=== PATIENT | female | born 1945 | race Caucasian/White ===

== ENCOUNTER → 2016-08-10 | Outpatient (CLI) | payer OTHER ==
[2015-08-10 14:46] VITALS: BP 133/82; PULSE 71
[~2016-08-10] MED LIST: CALC-220 PO; CETI10TA10 PO; CHOL1CAP57 PO; FMR25 PO; FSM70 PO; HYDR25TA5 PO; LSN40 PO; MELA1TAB54 PO; MISCTAB88 PO; MOME50SP5; MULT-614 PO; OMEP20CA9 PO; ZLF/100 PO
[2016-08-10 13:00] VITALS: BP 138/75; PULSE 88; TEMP 37; O2SAT 94
--- NOTE | 2016-08-10 14:37 | Radiation Oncology Follow-Up ---
Radiation Oncology Follow-Up Date of Visit Aug 10, 2016. Reason For Visit Annual follow-up Radiation Completion Date 11/25/12 Diagnosis (1) Breast cancer Status: Resolved Onset Date: 07/27/2011 Histology Subtype: ductal Stage: l (A) Permanent Comment: Abnormal right breast mammogram Status post biopsy revealing infiltrating ductal carcinoma status post partial mastectomy and sentinel lymph node biopsy estrogen receptor positive, progesterone receptor positive, HER-2/lorena negative stage pT1c pN0M0 Oncotype DX score of 13 Status post completion of radiation therapy 11/25/2012 received 6120 cGy Last Edited By: Claritza Butler on Aug 10, 2015 16:04 Interim History Over this past year she has been doing well. She does occasionally have a feeling of fullness in the breast. She will note redness that will last for a few hours then quickly resolved. She has noted no masses and no change of the axilla. She is up-to-date on mammography. She is on Femara and denies side effects. She currently is being treated for urinary tract infection. She is on antibiotic. She is followed closely for pulmonary lung nodules. Dr. Ferrer has followed her with serial CT scans. Allergies Coded Allergies: No Known Allergies (Unverified , 08/25/15) Home Medications Scheduled Alendronate Sodium (Alendronate Sodium), 70 MG PO WK Calcium Carbonate-Vitamin D (Caltrate 600+D), 1 TAB PO BID Cholecalciferol (Vitamin D3), 1,000 INTER.UNIT PO 2XWK Hydrochlorothiazide (Hydrochlorothiazide), 25 MG PO DAILY Letrozole (Femara), 2.5 MG PO DAILY Lisinopril (Lisinopril), 40 MG PO DAILY Melatonin (Melatonin), 5 MG PO HS Misc Natural Products (Osteo Bi-Flex Triple Stre), 1 TAB PO BID Mometasone Furoate (Nasonex), 1 SPRAY NA DAILY Multiple Vitamins W/ Minerals (Centrum Silver Ultra [place]ome), 1 TAB PO DAILY Omeprazole (Prilosec), 20 MG PO DAILY Sertraline HCl (Sertraline HCl), 150 MG PO DAILY Scheduled PRN Cetirizine Hcl (Zyrtec), 10 MG PO DAILY PRN for Allergies Review of Systems Gastrointestinal: Symptoms: WNL GI Comments: occ constipation Last BM today Oral: Symptoms: No Problems Other Oral Symptoms: feels like lump in throat pt thinks result of mucous started on nasonex Respiratory: Symptoms: WNL Urinary: Symptoms: WNL Comments: Currently have UTI and on antibiotic Skin: Symptoms: No Problems Other Skin Symptoms: noted x2 right breast was red no prob at present Breast: Right Upper Arm Measurement: 33.0 Right Mid Arm Measurement: 26.4 Right Wrist Measurement: 15.6 Left Upper Arm Measurement: 34.1 Left Mid Arm Measurement: 26.3 Left Wrist Measurement: 15.8 Arm Dominence: Right Patient Cosmetic Evaluation: Fair Staff Cosmetic Evalaluation: Good Physical Exam Vital Signs Date Time Temp Pulse Resp B/P Pulse Ox O2 Delivery O2 Flow Rate FiO2 08/10/16 13:00 37.0 88 16 138/75 94 Fatigue: None General Appearance: no apparent distress Eyes: normal inspection, EOMI ENT: normal ENT inspection, hearing grossly normal Neck: no adenopathy, thyroid normal Respiratory/Chest: lungs clear, no respiratory distress, no accessory muscle use Breast: Breast examination reveals well-healed incisions of the right breast. She has some mild edema in the lower quadrants. There are no masses or tenderness no axillary adenopathy. There is no erythema. Using the [place] score cosmesis she has a good outcome. The left breast showed no masses or tenderness and no axillary adenopathy. Cardiovascular: regular rate, rhythm, no gallop, no murmur Abdomen: non tender, soft Extremities: no pedal edema Neurologic/Psychiatric: no motor/sensory deficits, alert, normal mood/affect Skin: warm/dry Lymphatic: no adenopathy Laboratory Studies Test 05/29/16 13:53 White Blood Count 6.38 K/uL (4.8-10.8) Red Blood Count 3.89 M/uL (4.2-5.4) Hemoglobin 11.1 g/dL (12.0-16.0) Hematocrit 33.5 % (37-47) Mean Corpuscular Volume 86.1 fL (80-100) Mean Corpuscular Hemoglobin 28.5 pg (25-34) Mean Corpuscular Hemoglobin Concent 33.1 g/dl (32-36) Platelet Count 156 K/uL (130-400) Mean Platelet Volume 10.2 fL (7.4-10.4) Neutrophils (%) (Auto) 71.9 % Lymphocytes (%) (Auto) 19.3 % Monocytes (%) (Auto) 7.2 % Eosinophils (%) (Auto) 0.9 % Basophils (%) (Auto) 0.5 % Neutrophils # (Auto) 4.59 K/uL (1.4-6.5) Lymphocytes # (Auto) 1.23 K/uL (1.2-3.4) Monocytes # (Auto) 0.46 K/uL (0.11-0.59) Eosinophils # (Auto) 0.06 K/uL (0-0.5) Basophils # (Auto) 0.03 K/uL (0-0.2) RDW Standard Deviation 42.8 fL (36.4-46.3) RDW Coefficient of Variation 13.5 % (11.5-14.5) Immature Granulocyte % (Auto) 0.2 % Immature Granulocyte # (Auto) 0.01 K/uL (0.00-0.02) Sodium Level 144 mmol/L (136-145) Potassium Level 3.4 mmol/L (3.5-5.1) Chloride Level 108 mmol/L (98-107) Carbon Dioxide Level 25 mmol/L (21-32) Anion Gap 11.0 mmol/L (3-11) Blood Urea Nitrogen 20 mg/dl (7-18) Creatinine 0.74 mg/dl (0.60-1.20) Estimated GFR () 95.1 Estimated GFR (Non- 82.1 BUN/Creatinine Ratio 26.6 (10-20) Random Glucose 98 mg/dl (70-99) Calcium Level 9.6 mg/dl (8.5-10.1) Total Bilirubin 0.9 mg/dl (0.2-1) Aspartate Amino Transferase (AST) 18 U/L (15-37) Alanine Aminotransferase (ALT) 9 U/L (12-78) Alkaline Phosphatase 83 U/L (45-117) Lactate Dehydrogenase 153 U/L (84-246) Total Protein 6.8 gm/dl (6.4-8.2) Albumin 3.6 gm/dl (3.4-5.0) Globulin 3.2 gm/dl (2.5-4.0) Albumin/Globulin Ratio 1.1 (0.9-2) CA 15-3 Antigen 35 U/mL (<32) CA 27.29 46 U/ML (<38) Additional Studies She had a mammogram in [place] 09/14/2015. There is no mammographic evidence of malignancy. One year follow-up was recommended. BI-RADS Category 2. She also had a follow-up CT scan of the chest 04/10/2016. This revealed the right upper lobe nodule and left lower lobe nodule to be stable. She had a mammogram 05/09/2016. This was a right breast mammogram. This showed stable expected postlumpectomy and radiation changes in the right breast are benign. BI-RADS Category 2. Assessment & Plan Plan: Continue regular follow-up with medical oncology and her primary care physician. Continue follow-up at [place] with the breast surgeon. She continues on Femara. Continue on current schedule of mammography. She'll continue the recheck of the pulmonary nodules through Dr. Ferrer's office. We asked her to return to our office in 1 year. She may call she has any questions or concerns. Total Time In Follow-Up I spent 20 minutes speaking to the patient and performing examination. I spent 15 minutes reviewing information and completing this note. Copy To Arron Ferrer D.O.; Renata Mae M.D.; Lowell Cordero M.D. Problem Qualifiers (1) Breast cancer: Patient sex: female Laterality: right
== END | disposition home or self-care (01) ==
LOC: C.ONC 12:55
PROVIDERS: ATTEND Radiology Radiation Oncology
DX: Z08 Encounter for follow-up examination after completed treatment for malignant neoplasm (principal); Z92.3 Personal history of irradiation; Z85.3 Personal history of malignant neoplasm of breast

== ENCOUNTER → 2016-08-14 | Outpatient (CLI) | payer OTHER ==
--- NOTE | 2016-08-14 13:03 | DIAGNOSTIC IMAGING REPORT ---
CT OF THE CHEST WITHOUT IV CONTRAST CLINICAL HISTORY: Pulmonary nodule. COMPARISON STUDY: Chest CT May 15, 2016 and October 08, 2015. CT DOSE: 441.70 mGy.cm TECHNIQUE: Axial images of the chest were obtained without IV contrast. Images were reviewed in the axial, sagittal, and coronal planes. IV contrast was not administered for this examination. FINDINGS: No enlarged axillary, mediastinal or hilar lymph nodes are present. The size of the heart is within normal limits. There is no pericardial effusion. Asymmetric right breast skin thickening is unchanged. Postsurgical findings within the right breast and right axillary are again noted. Central airways are patent. There is no consolidation. Linear and ground glass opacities are suggestive atelectasis or scarring. A 6 mm right upper lobe nodule shown on image [address] of October 08, 2015. A 4 mm left lower lobe nodule shown on image 155 is also unchanged. Numerous additional smaller nodules are unchanged. No new nodules are present. No suspicious osseous lesions are present. Gallstones are noted within the gallbladder. IMPRESSION: 1. No change in multiple pulmonary nodules since CT of October 08, 2015. These nodules are likely benign but a follow-up chest CT in 6 months to ensure stability is recommended. 2. No thoracic lymphadenopathy. 3. Stable asymmetric right breast skin thickening which is likely post therapeutic. Electronically signed by: Casey Murray M.D. 08/14/2016 1:02 PM Dictated Date/Time: 08/14/2016 11:45 AM
== END | disposition home or self-care (01) ==
LOC: C.CTS 11:07
PROVIDERS: ATTEND Family Medicine
DX: R91.1 Solitary pulmonary nodule (principal)

== ENCOUNTER → 2016-11-09 | Outpatient (CLI) | payer OTHER ==
[~2016-11-09] MED LIST changes: +OPTIRAY 320 IV PRN
--- NOTE | 2016-11-09 11:40 | DIAGNOSTIC IMAGING REPORT ---
CT OF THE CHEST WITH IV CONTRAST CLINICAL HISTORY: Breast cancer. COMPARISON STUDY: Chest CT August 14, 2016. TECHNIQUE: Following IV administration of 94 mL of Optiray-320, helical axial images of the chest were obtained. Images were viewed in the axial, sagittal and coronal planes. IV contrast was administered without complication. CT DOSE: 359.63 mGy.cm FINDINGS: No enlarged axillary, mediastinal or hilar lymph nodes are present. The size of the heart is at the upper limits of normal. There is no pericardial effusion. Central airways are patent. There is no consolidation to suggest pneumonia. Numerous small pulmonary nodules are unchanged since CT of October 08, 2015. These are stable since treatment planning CT of September 27, 2012. The largest is a 6 mm right upper lobe nodule shown on image 73 of 271. There are no new nodules. Bony thorax is unremarkable. Visualized portions of the upper abdomen demonstrate stable hypodense hepatic lesions which likely reflect cysts. There is a gallstone within the gallbladder. Right breast skin thickening is unchanged. IMPRESSION: 1. No change in multiple pulmonary nodules since earlier exams. These are considered benign given stability. 2. No thoracic lymphadenopathy. 3. Stable right breast skin thickening which is likely post therapeutic. Electronically signed by: Casey Murray M.D. 11/09/2016 11:38 AM Dictated Date/Time: 11/09/2016 11:23 AM
== END | disposition home or self-care (01) ==
LOC: C.CTS 10:43
PROVIDERS: ATTEND Internal Medicine Hematology & Oncology
DX: C50.911 Malignant neoplasm of unspecified site of right female breast (principal)

== ENCOUNTER → 2016-11-27 | Outpatient (CLI) | payer OTHER ==
[~2016-11-27] MED LIST changes: -OPTIRAY 320 IV PRN
[2016-11-27 15:47] LABS: BASO ABS # 0.05 K/uL (0-0.2); COMPLETE YES; EOS % 2.4 %; HEMATOCRIT 36.5 % (37-47); IG% 0.2 %; LYMPH % 37.3 %; MEAN CELL VOLUME 86.9 fL (80-100); MEAN CORPUSCULAR HEMOGLOBIN 28.1 pg (25-34); MEAN CORPUSCULAR HGB CONC 32.3 g/dl (32-36); MONO % 7.1 %; PLATELET COUNT 167 K/uL (130-400)
[2016-11-27 15:58] LABS: ALT/SGPT 11 U/L (12-78); AST/SGOT 19 U/L (15-37); BLOOD UREA NITROGEN 30 mg/dl (7-18); BUN/CREATININE RATIO 33.7 (10-20); CALCIUM 9.9 mg/dl (8.5-10.1); CARBON DIOXIDE 28 mmol/L (21-32); CHLORIDE 106 mmol/L (98-107); CREATININE 0.88 mg/dl (0.60-1.20); GLUCOSE 129 mg/dl (70-99); SODIUM 141 mmol/L (136-145)
[2016-11-27 16:00] LABS: ALKALINE PHOSPHATASE 94 U/L (45-117)
== END | disposition home or self-care (01) ==
LOC: C.LAB1850 14:39
PROVIDERS: ATTEND Nurse Practitioner Family
DX: C50.911 Malignant neoplasm of unspecified site of right female breast (principal)

== ENCOUNTER → 2017-05-25 | Outpatient (CLI) | payer OTHER ==
[2017-05-25 15:32] LABS: BASO % 0.6 %; BASO ABS # 0.04 K/uL (0-0.2); COMPLETE YES; EOS % 1.2 %; HEMATOCRIT 36.1 % (37-47); IG% 0.1 %; LYMPH % 30.8 %; LYMPH ABS # 2.09 K/uL (1.2-3.4); MEAN CELL VOLUME 88.7 fL (80-100); MEAN CORPUSCULAR HEMOGLOBIN 28.3 pg (25-34); MEAN CORPUSCULAR HGB CONC 31.9 g/dl (32-36); MEAN PLATELET VOLUME 9.8 fL (7.4-10.4); MONO % 8.5 %; NEUT % 58.8 %; PLATELET COUNT 173 K/uL (130-400); RED BLOOD COUNT 4.07 M/uL (4.2-5.4); WHITE BLOOD COUNT 6.79 K/uL (4.8-10.8)
[2017-05-25 15:51] LABS: ALT/SGPT 13 U/L (12-78); AST/SGOT 21 U/L (15-37); BLOOD UREA NITROGEN 31 mg/dl (7-18); BUN/CREATININE RATIO 35.4 (10-20); CALCIUM 9.9 mg/dl (8.5-10.1); CARBON DIOXIDE 30 mmol/L (21-32); CHLORIDE 104 mmol/L (98-107); CREATININE 0.87 mg/dl (0.60-1.20); GLUCOSE 110 mg/dl (70-99); POTASSIUM 3.8 mmol/L (3.5-5.1); SODIUM 139 mmol/L (136-145)
[2017-05-25 15:53] LABS: ALKALINE PHOSPHATASE 107 U/L (45-117)
== END | disposition home or self-care (01) ==
LOC: C.LAB1850 14:23
PROVIDERS: ATTEND Internal Medicine Hematology & Oncology
DX: C50.911 Malignant neoplasm of unspecified site of right female breast (principal)

== ENCOUNTER → 2017-08-23 | Outpatient (CLI) | payer OTHER ==
[~2017-08-23] MED LIST changes: +FSMD/70 PO
[2017-08-23 14:11] VITALS: BP 126/82; PULSE 78; TEMP 37.2; O2SAT 78
--- NOTE | 2017-08-23 15:27 | Radiation Oncology Follow-Up ---
Radiation Oncology Follow-Up Date of Visit Aug 23, 2017. Reason For Visit Annual follow-up Radiation Completion Date finished 11-25-2012 Diagnosis (1) Breast cancer Status: Resolved Onset Date: 07/27/2011 Histology Subtype: ductal Stage: l Permanent Comment: Abnormal right breast mammogram Status post biopsy revealing infiltrating ductal carcinoma status post partial mastectomy and sentinel lymph node biopsy estrogen receptor positive, progesterone receptor positive, HER-2/lorena negative stage pT1c pN0M0 Oncotype DX score of 13 Status post completion of radiation therapy 11/25/2012 received 6120 cGy Last Edited By: Claritza Butler on Aug 10, 2015 16:04 Interim History She's been doing well over this past year. She noted no masses or breast. Noticed no change of the axilla. She has had no swelling of her arm. She is on antiestrogen therapy with Femara. She has mild hot flashes. She has a history of pulmonary nodules. She had recheck CTs and these are no longer required. The nodules are stable. Allergies Coded Allergies: No Known Allergies (Unverified , 08/25/15) Home Medications Scheduled Alendronate/Cholecalciferol (Fosamax+D 70MG/2800 Iu), 1 TABLET PO WK Calcium Carbonate-Vitamin D (Caltrate 600+D), 1 TAB PO BID Cholecalciferol (Vitamin D3), 1,000 INTER.UNIT PO 2XWK Hydrochlorothiazide (Hydrochlorothiazide), 25 MG PO DAILY Letrozole (Femara), 2.5 MG PO DAILY Lisinopril (Lisinopril), 40 MG PO DAILY Misc Natural Products (Osteo Bi-Flex Triple Stre), 1 TAB PO BID Mometasone Furoate (Nasonex), 1 SPRAY NA DAILY Multiple Vitamins W/ Minerals (Centrum Silver Ultra [place]), 1 TAB PO DAILY Omeprazole (Prilosec), 20 MG PO DAILY Sertraline HCl (Sertraline HCl), 150 MG PO DAILY Scheduled PRN Cetirizine Hcl (Zyrtec), 10 MG PO DAILY PRN for Allergies Melatonin (Melatonin), 5 MG PO HS PRN for Sleep Review of Systems Gastrointestinal: Symptoms: WNL GI Comments: occ constipation Last BM today Oral: Symptoms: No Problems Other Oral Symptoms: feels like lump in throat pt thinks result of mucous started on nasonex Respiratory: Symptoms: WNL Other Respiratory: I have sinus drainage , my sinuses are drying up now " Urinary: Symptoms: Nocturia Comments: had a UTI the beginning of the month, ok now, occ nocturia Skin: Symptoms: No Problems Other Skin Symptoms: noted x2 right breast was red no prob at present Breast: Right Upper Arm Measurement: 37.5 Right Mid Arm Measurement: 27.0 Right Wrist Measurement: 16.5 Left Upper Arm Measurement: 36.0 Left Mid Arm Measurement: 26.0 Left Wrist Measurement: 16.0 Arm Dominence: Right Patient Cosmetic Evaluation: Good Staff Cosmetic Evalaluation: Excellent Physical Exam Vital Signs Date Time Temp Pulse Resp B/P (MAP) Pulse Ox O2 Delivery O2 Flow Rate FiO2 18 14:11 37.2 78 18 126/82 78 Fatigue: None General Appearance: no apparent distress Eyes: normal inspection, EOMI ENT: normal ENT inspection, hearing grossly normal Neck: no adenopathy, thyroid normal Respiratory/Chest: lungs clear, no respiratory distress, no accessory muscle use Breast: Breast examination reveals well-healed incisions of the right breast. There are no masses or tenderness no axillary adenopathy. She has no skin retractions or nipple changes. Using the [place] score cosmesis she has a an excellent outcome. The left breast showed no masses or tenderness no axillary adenopathy. Cardiovascular: regular rate, rhythm, no gallop, no murmur Extremities: no pedal edema Neurologic/Psychiatric: no motor/sensory deficits, alert, normal mood/affect Skin: warm/dry, no rash Pain Management Patient Reports Pain: No Side: Bilateral Patient Preferred Pain Scale: 0 - 10 Initial Pain Intensity: 0.0 Pain Management Plan She denies pain therefore requires no pain management. Laboratory Laboratory Results: not applicable Pathology Pathology Results: not applicable Imaging Imaging Studies: were reviewed, and pertinent findings noted below Imaging Comments She had a mammogram at [place] on 10/10/2016. There is no mammographic evidence of malignancy. Recheck in one year. BI-RADS Category 2. Assessment & Plan Plan: Continue annual mammography. She is scheduled for recheck visit and mammogram in [place]. Continue follow-up with medical oncology and her primary care physician. A follow-up will plan with our office was not given. She may call if she has any questions or concerns. Total Time In Follow-Up I spent 20 minutes speaking to the patient and performing examination. I spent 15 minutes reviewing information in completing this note. Copy To Arron Ferrer D.O.; Renata Mae M.D.; Lowell Cordero M.D. Problem Qualifiers (1) Breast cancer: Patient sex: female Laterality: right
== END | disposition home or self-care (01) ==
LOC: C.ONC 14:04
PROVIDERS: ATTEND Physician Assistant Medical
DX: Z08 Encounter for follow-up examination after completed treatment for malignant neoplasm (principal); Z92.3 Personal history of irradiation; Z85.3 Personal history of malignant neoplasm of breast

== ENCOUNTER → 2017-11-16 | Outpatient (CLI) | payer OTHER ==
[~2017-11-16] MED LIST changes: -FSM70 PO
[2017-11-16 12:29] LABS: BASO % 0.5 %; BASO ABS # 0.03 K/uL (0-0.2); EOS % 1.8 %; HEMATOCRIT 37.4 % (37-47); HEMOGLOBIN 12.2 g/dL (12.0-16.0); IG# 0.01 K/uL (0.00-0.02); LYMPH % 31.3 %; LYMPH ABS # 1.78 K/uL (1.2-3.4); MEAN CELL VOLUME 87.8 fL (80-100); MEAN CORPUSCULAR HEMOGLOBIN 28.6 pg (25-34); MEAN CORPUSCULAR HGB CONC 32.6 g/dl (32-36); MEAN PLATELET VOLUME 9.8 fL (7.4-10.4); MONO % 8.1 %; MONO ABS # 0.46 K/uL (0.11-0.59); NEUT % 58.1 %; NEUT ABS # 3.31 K/uL (1.4-6.5); PLATELET COUNT 189 K/uL (130-400); RED CELL DISTRIBUTION WIDTH CV 13.7 % (11.5-14.5); RED CELL DISTRIBUTION WIDTH SD 43.4 fL (36.4-46.3); WHITE BLOOD COUNT 5.69 K/uL (4.8-10.8)
[2017-11-16 13:16] LABS: ALBUMIN 3.8 gm/dl (3.4-5.0); ALT/SGPT 13 U/L (12-78); AST/SGOT 23 U/L (15-37); BLOOD UREA NITROGEN 22 mg/dl (7-18); CALCIUM 9.7 mg/dl (8.5-10.1); CARBON DIOXIDE 29 mmol/L (21-32); CREATININE 0.83 mg/dl (0.60-1.20); GLUCOSE 101 mg/dl (70-99); POTASSIUM 3.9 mmol/L (3.5-5.1); SODIUM 142 mmol/L (136-145)
[2017-11-16 13:22] LABS: ALKALINE PHOSPHATASE 88 U/L (45-117); TOTAL PROTEIN 7.4 gm/dl (6.4-8.2)
== END | disposition home or self-care (01) ==
LOC: C.LAB1850 11:08
PROVIDERS: ATTEND Nurse Practitioner Family
DX: C50.911 Malignant neoplasm of unspecified site of right female breast (principal)